=== PATIENT | male | born 1960 | race Caucasian/White ===

== ENCOUNTER 2017-03-04 15:01 | Emergency (ER) | payer BC ==
[~2017-03-04] VITALS: Ht 172.7 cm; Wt 107.0 kg
--- NOTE | 2017-03-04 15:05 | NUR ---
PATIENT BIB [facility] FROM STREET: SVT. ADENOSINE 6 GIVEN IN FIELD WITH HELP. PATIENT IS A/OX 4. STATING NO CHEST PAIN, "JUST DOESNT FEEL RIGHT." BREATHING EVEN AND UNLABORED. NO SOB. VITALS STABLE. IV IN LAC, 18 G. SAFETY AND COMFORT MEASURES IN PLACE. AWAITING MD ORDERS.
[2017-03-04 15:39] LABS: BASOPHILS % (AUTO) 0.3 % (0.0-2.0); EOSINOPHILS # (AUTO) 0.1 /CMM (0.0-0.7); EOSINOPHILS % (AUTO) 2.3 % (0.0-6.0); HEMATOCRIT 42 % (39-51); HEMOGLOBIN 14.1 g/dL (13.5-17.5); LYMPHOCYTES # (AUTO) 1.3 /CMM (0.8-4.8); LYMPHOCYTES % (AUTO) 26.6 % (20.0-44.0); MEAN CORPUSCULAR HEMOGLOBIN 30 PG (26.0-33.0); MEAN CORPUSCULAR HGB CONC 34 g/dl (31.0-36.0); MEAN CORPUSCULAR VOLUME 89 fL (80-96); MONOCYTES # (AUTO) 0.4 /CMM (0.1-1.30); MONOCYTES % (AUTO) 8.1 % (2.0-12.0); NEUTROPHILS # (AUTO) 3.3 /CMM (1.8-8.9); NEUTROPHILS % (AUTO) 62.7 % (43.0-81.0); PLATELET COUNT (AUTO) 303 /CMM (150-450); RDW COEFFICIENT OF VARIATION 13.1 (11.5-15.0); WHITE BLOOD COUNT (AUTO) 5.1 K/uL (4.3-11.0)
[2017-03-04 15:51] LABS: CALCIUM, SERUM 8.2 mg/dL (8.5-10.1); CARBON DIOXIDE 27 mmol/L (21-32); CHLORIDE 105 mmol/L (98-107); CREATININE 1.2 mg/dL (0.6-1.3); GLUCOSE 208 mg/dL (74-106); POTASSIUM 3.7 mmol/L (3.5-5.1); SODIUM SERUM 140 mmol/L (136-145); UREA NITROGEN, BLOOD 15 mg/dL (7-18)
[2017-03-04] MEDS ORDERED: METF500T4 PO (15:51)
[2017-03-04] MEDS ORDERED: TRAZ-144 PO (15:51)
[2017-03-04] MEDS ORDERED: ASPI81TA2 PO (15:51)
[2017-03-04] MEDS ORDERED: CHOL100044 PO (15:51)
[2017-03-04] MEDS ORDERED: LORA1TAB PO (15:51)
[2017-03-04] MEDS ORDERED: ATOR10TA PO (15:51)
[2017-03-04] MEDS ORDERED: VENL75CA56 PO (15:51)
[2017-03-04] MEDS ORDERED: AMPH30CA3 PO (15:51)
[2017-03-04] MEDS ORDERED: LISI2.5T2 PO (15:51)
[2017-03-04] MEDS ORDERED: LEVO112T2 PO (15:51)
[2017-03-04 15:54] LABS: INR 0.98 (0.87-1.13); PROTHROMBIN TIME 10.2 SECS (9.5-12.7)
[2017-03-04 15:57] LABS: ALANINE AMINOTRANSFERASE 36 U/L (12-78); ALBUMIN 3.5 g/dL (3.4-5.0); ALKALINE PHOSPHATASE 82 U/L (46-116); ASPARTATE AMINOTRANSFERASE 15 U/L (15-37); BILIRUBIN,DIRECT 0.2 mg/dL (0.0-0.2); TOTAL PROTEIN, SERUM 6.1 g/dL (6.4-8.2)
[2017-03-04 15:59] LABS: TROPONIN I < 0.017 ng/mL (0.00-0.056)
--- NOTE | 2017-03-04 16:58 | NUR ---
PATIENT IN SVT, RATE 188. DR. OBANDO INFORMED, 12 MG ADENOSINE ADMINISTERED UNDER MD SUPERVISION. WILL CONTINUE TO MONITOR.
--- NOTE | 2017-03-04 17:32 | NUR ---
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
--- NOTE | 2017-03-04 17:37 | NUR ---
DR KELLE CONTRERAS ON THE PHONE WITH ER PHYSICIAN DR OBANDO
--- NOTE | 2017-03-04 18:16 | NUR ---
No further cardiac arrhythmia noted at this time. Patient discharged to home in stable condition. Prescription handed to patient. Written and verbal after care instructions given. Patient verbalizes understanding of instruction.
[2017-03-04 18:17] VITALS: BP 118/86
== END 2017-03-04 18:18 | disposition home or self-care (01) ==
LOC: ER 15:03
DX: I47.1 Supraventricular tachycardia (principal); E11.9 Type 2 diabetes mellitus without complications; E78.5 Hyperlipidemia, unspecified; I10 Essential (primary) hypertension; Z79.82 Long term (current) use of aspirin
CPT/HCPCS: 36415; 71010; 80048; 80076; 83036; 84443; 84484; 85025; 85730; 93005 ×3; 96361; 96374; 99285; A4606; J0153; J7030; Z7610

== ENCOUNTER 2024-02-01 11:49 | Inpatient (IN) | payer BC, OTHER ==
[~2024-02-01] VITALS: Ht 172.7 cm; Wt 75.7 kg
[~2024-02-01 11:49] MED LIST: AMPH30CA3 PO; ASPI-1169 PO; ATOR10TA PO; CHOL100044 PO; LEVO112T2 PO; LISI2.5T2 PO; LORA1TAB PO; METF-440 PO; TRAZ-182 PO; VENL75CA56 PO
[2024-02-01] MEDS ORDERED: MECLIZINE HCL 25 MG TABLET ONE (12:12)
[2024-02-01] MEDS: MECLIZINE HCL 25 MG TABLET PO ONE (12:16)
[2024-02-01 12:20] LABS: BASOPHILS # (AUTO) 0.1 K/uL (0.0-0.2); BASOPHILS % (AUTO) 0.9 % (0.0-2.0); EOSINOPHILS # (AUTO) 0.1 K/uL (0.0-0.7); EOSINOPHILS % (AUTO) 1.8 % (0.0-6.0); HEMATOCRIT 42 % (39-51); HEMOGLOBIN 14.4 g/dL (13.5-17.5); LYMPHOCYTES # (AUTO) 2.2 K/uL (0.8-4.8); LYMPHOCYTES % (AUTO) 27.2 % (20.0-44.0); MEAN CORPUSCULAR HEMOGLOBIN 30 PG (26.0-33.0); MEAN CORPUSCULAR HGB CONC 35 g/dl (31.0-36.0); MEAN CORPUSCULAR VOLUME 86 fL (80-96); MONOCYTES # (AUTO) 0.7 K/uL (0.1-1.30); MONOCYTES % (AUTO) 8.9 % (2.0-12.0); NEUTROPHILS # (AUTO) 4.9 K/uL (1.8-8.9); NEUTROPHILS % (AUTO) 61.2 % (43.0-81.0); PLATELET COUNT (AUTO) 369 K/uL (150-450); RED BLOOD CELL COUNT(AUTO) 4.82 MIL/uL (4.5-6.0); RED CELL DISTRIBUTION WIDTH 14.7 % (11.5-15.0)
[2024-02-01 12:31] LABS: CALCIUM, SERUM 9.8 mg/dL (8.5-10.1); CARBON DIOXIDE 25 mmol/L (21-32); CHLORIDE 101 mmol/L (98-107); CREATININE 1.8 mg/dL (0.6-1.3); GLUCOSE 180 mg/dL (74-106); POTASSIUM 3.8 mmol/L (3.5-5.1); SODIUM SERUM 138 mmol/L (136-145); UREA NITROGEN, BLOOD 19 mg/dL (7-18)
[2024-02-01 12:43] LABS: ALANINE AMINOTRANSFERASE 17 U/L (12-78); ALBUMIN 3.6 g/dL (3.4-5.0); ALKALINE PHOSPHATASE 85 U/L (46-116); ASPARTATE AMINOTRANSFERASE 7 U/L (15-37); BILIRUBIN,DIRECT 0.1 mg/dL (0.0-0.2); BILIRUBIN,TOTAL 0.6 mg/dL (0.2-1.0); NT-PRO BNP 111 pg/mL (0-125); TOTAL PROTEIN, SERUM 7.3 g/dL (6.4-8.2)
[2024-02-01] MEDS: IV NS 0.9% 1,000 ML BAG IV ONE (13:00)
[2024-02-01] MEDS ORDERED: FOLI0.4T6 PO (13:45)
[2024-02-01] MEDS ORDERED: MAGN400T52 PO (13:45)
[2024-02-01] MEDS ORDERED: METF-442 PO (13:45)
[2024-02-01] MEDS ORDERED: ATOR20TA PO (13:45)
[2024-02-01] MEDS ORDERED: LEVO100T PO (13:45)
[2024-02-01] MEDS ORDERED: CHOL100062 PO (13:45)
[2024-02-01] MEDS ORDERED: ASPIRIN 325 MG TABLET ONE (13:46)
[2024-02-01] MEDS: ASPIRIN 325 MG TABLET PO ONE (13:48)
[2024-02-01] MEDS ORDERED: LORAZEPAM INJ 2 MG/ML VIAL ONE (14:05)
[2024-02-01] MEDS: LORAZEPAM INJ 2 MG/ML VIAL IV ONE (14:07)
[2024-02-01] MEDS ORDERED: ACETAMINOPHEN 325 MG TABLET PO PRN (16:30)
[2024-02-01] MEDS ORDERED: ONDANSETRON HCL/PF 4 MG/2 ML VIAL IVP PRN (16:30)
[2024-02-01] MEDS ORDERED: ZOLPIDEM TARTRATE 5 MG TABLET PO PRN (16:30)
[2024-02-01] MEDS ORDERED: MAGNESIUM HYDROXIDE 30 ML UDC PO PRN (16:30)
[2024-02-01] MEDS ORDERED: Z GUARD REMEDY 4 OZ OINT TP PRN (16:30)
[2024-02-01] MEDS ORDERED: hydrALAZINE HCL 25 MG TABLET PO PRN (16:30)
[2024-02-01] MEDS ORDERED: DEXTROSE 50%-WATER 50 ML DISP.SYRIN IV PRN (16:30)
[2024-02-01] MEDS ORDERED: MAG HYDROX/AL HYDROX/SIMETH 30 ML UDC PO PRN (16:30)
[2024-02-01] MEDS: BLOOD SUGAR DIAGNOSTIC 1 EACH STRIP VI SCH (18:00)
[2024-02-01 22:12] VITALS: O2SAT 97
[2024-02-01 22:45] VITALS: BP 124/92; TEMP 97.7; O2SAT 95
[2024-02-01] MEDS: SIMVASTATIN 20 MG TABLET PO SCH (23:44)
[2024-02-01] MEDS: TRAZODONE 50 MG TABLET PO SCH (23:44)
[2024-02-01] MEDS: IV 1/2NS 1000 ML 1,000 ML IV ONE (23:49)
[2024-02-02] VITALS: BP 114/91; TEMP 97.9; O2SAT 93
[2024-02-02] MEDS: ENOXAPARIN SODIUM 40 MG/0.4 ML DISP.SYRIN SQ SCH (00:45)
[2024-02-02 07:20] LABS: BASOPHILS # (AUTO) 0.1 K/uL (0.0-0.2); BASOPHILS % (AUTO) 1.1 % (0.0-2.0); EOSINOPHILS # (AUTO) 0.2 K/uL (0.0-0.7); HEMATOCRIT 39 % (39-51); HEMOGLOBIN 13.5 g/dL (13.5-17.5); LYMPHOCYTES # (AUTO) 2.9 K/uL (0.8-4.8); MEAN CORPUSCULAR HEMOGLOBIN 30 PG (26.0-33.0); MEAN CORPUSCULAR HGB CONC 34 g/dl (31.0-36.0); MEAN CORPUSCULAR VOLUME 88 fL (80-96); MONOCYTES # (AUTO) 0.7 K/uL (0.1-1.30); MONOCYTES % (AUTO) 8.6 % (2.0-12.0); NEUTROPHILS % (AUTO) 50.3 % (43.0-81.0); PLATELET COUNT (AUTO) 339 K/uL (150-450); RED BLOOD CELL COUNT(AUTO) 4.47 MIL/uL (4.5-6.0); RED CELL DISTRIBUTION WIDTH 14.7 % (11.5-15.0); WHITE BLOOD COUNT (AUTO) 7.9 K/uL (4.3-11.0)
[2024-02-02 08:00] VITALS: BP 108/85; TEMP 97.3; O2SAT 95
[2024-02-02 08:04] LABS: CALCIUM, SERUM 8.8 mg/dL (8.5-10.1); CREATININE 1.5 mg/dL (0.6-1.3); MAGNESIUM 1.8 mg/dL (1.8-2.4); PHOSPHORUS 3.7 mg/dL (2.5-4.9); POTASSIUM 3.6 mmol/L (3.5-5.1)
[2024-02-02] MEDS: ASPIRIN EC 325 MG TABLET.DR PO SCH (08:25)
[2024-02-02] MEDS: CHOLECALCIFEROL 1,000 UNIT TABLET (VIT D3) PO SCH (08:25)
[2024-02-02] MEDS: FOLIC ACID 1 MG TABLET PO SCH (08:25)
[2024-02-02] MEDS: PANTOPRAZOLE 40 MG TABLET.DR PO SCH (08:25)
[2024-02-02] MEDS: LEVOTHYROXINE SODIUM 100 MCG TABLET PO SCH (08:25)
[2024-02-02] MEDS: MAGNESIUM OXIDE 400 MG TABLET PO SCH (08:25)
[2024-02-02 08:44] LABS: THYROID STIMULATING HORMONE 4.23 uIU/mL (0.358-3.74)
[2024-02-02 08:56] LABS: CHOLESTEROL 180 mg/dL (<200); HDL CHOLESTEROL 33 mg/dL (40-60); LDL 118 mg/dL (0-99); TRIGLYCERIDES 171 mg/dL (30-150)
[2024-02-02] MEDS: INSULIN REGULAR, HUMAN 100 UNIT/ML 3 ML VIAL SQ PRN (11:35)
[2024-02-02 12:00] VITALS: BP 112/98; TEMP 97.7; O2SAT 95
[2024-02-02 13:28] LABS: THYROID STIMULATING HORMONE 5.02 uIU/mL (0.358-3.74)
[2024-02-02 16:00] VITALS: BP 102/90; TEMP 97.7; O2SAT 96
[2024-02-02] MEDS: CLOPIDOGREL BISULFATE 75 MG TABLET PO SCH (16:06)
[2024-02-02 20:00] VITALS: BP 110/92; TEMP 97.7; O2SAT 93
[2024-02-02] MEDS: *INSULIN REGULAR(HUMULIN R)HUM 100 UNIT/ML VIAL SQ PRN (21:58)
[2024-02-03] VITALS: BP 107/79; TEMP 98.2; O2SAT 96
[2024-02-03 06:27] LABS: BASOPHILS # (AUTO) 0.1 K/uL (0.0-0.2); EOSINOPHILS # (AUTO) 0.3 K/uL (0.0-0.7); EOSINOPHILS % (AUTO) 3.6 % (0.0-6.0); HEMATOCRIT 39 % (39-51); HEMOGLOBIN 13.6 g/dL (13.5-17.5); LYMPHOCYTES # (AUTO) 2.4 K/uL (0.8-4.8); LYMPHOCYTES % (AUTO) 31.1 % (20.0-44.0); MEAN CORPUSCULAR HEMOGLOBIN 30 PG (26.0-33.0); MEAN CORPUSCULAR HGB CONC 35 g/dl (31.0-36.0); MEAN CORPUSCULAR VOLUME 86 fL (80-96); MONOCYTES # (AUTO) 0.6 K/uL (0.1-1.30); MONOCYTES % (AUTO) 8.4 % (2.0-12.0); NEUTROPHILS # (AUTO) 4.2 K/uL (1.8-8.9); NEUTROPHILS % (AUTO) 55.9 % (43.0-81.0); PLATELET COUNT (AUTO) 325 K/uL (150-450); RED BLOOD CELL COUNT(AUTO) 4.56 MIL/uL (4.5-6.0); RED CELL DISTRIBUTION WIDTH 14.8 % (11.5-15.0); WHITE BLOOD COUNT (AUTO) 7.6 K/uL (4.3-11.0)
[2024-02-03 06:46] LABS: BILIRUBIN,TOTAL 0.9 mg/dL (0.2-1.0); CALCIUM, SERUM 9.3 mg/dL (8.5-10.1); CREATININE 1.5 mg/dL (0.6-1.3); MAGNESIUM 1.6 mg/dL (1.8-2.4); PHOSPHORUS 4.1 mg/dL (2.5-4.9); POTASSIUM 3.8 mmol/L (3.5-5.1); TOTAL PROTEIN, SERUM 6.4 g/dL (6.4-8.2)
[2024-02-03 08:23] VITALS: BP 105/72; TEMP 98.1; O2SAT 96
[2024-02-03] MEDS: MAGNESIUM OXIDE 400 MG TABLET PO ONE (11:17)
[2024-02-03 12:09] VITALS: BP 129/89; TEMP 98.2; O2SAT 95
[2024-02-03] MEDS ORDERED: IV NS 0.9% 250 ML IV ONE (14:21)
[2024-02-03] MEDS ORDERED: IOHEXOL-350 100 ML VIAL IV ONE (14:21)
[2024-02-03] MEDS ORDERED: ATOR20TA PO (15:13)
[2024-02-03] MEDS ORDERED: CLOP75TA15 PO (15:13)
[2024-02-03] MEDS ORDERED: ASPI-1100 PO ×2 (15:13→15:54)
[2024-02-03] MEDS ORDERED: HYDR-3976 GT (15:48)
[2024-02-03 16:01] VITALS: BP 118/83; TEMP 98.1; O2SAT 95
[2024-02-04 05:11] LABS: FOLIC ACID 13.9 ng/mL (>3.0)
[2024-02-04 09:09] LABS: PTH, INTACT 17 pg/mL (15-65)
[2024-02-06 10:11] LABS: *SPE A/G RATIO 1.1 (0.7-1.7); *SPE ALBUMIN 3.2 g/dL (2.9-4.4); *SPE ALPHA-1-GLOBULIN 0.2 g/dL (0.0-0.4); *SPE BETA GLOBULIN 0.8 g/dL (0.7-1.3); *SPE GLOBULIN, TOTAL 2.9 g/dL (2.2-3.9); *SPE M-SPIKE Not Observed g/dL (Not Observed); *SPE PROTEIN TOTAL 6.1 g/dL (6.0-8.5); *SPEGAMMA GLOBULIN 0.8 g/dL (0.4-1.8)
== END 2024-02-03 18:30 | disposition home or self-care (01) | DRG 65 ==
LOC: ER 11:55 → TELE 21:56
PROVIDERS: ADMIT Student in an Organized Health Care Education/Training Program; ATTEND Internal Medicine
DX: I63.331 Cerebral infarction due to thrombosis of right posterior cerebral artery (principal); N17.9 Acute kidney failure, unspecified; E11.9 Type 2 diabetes mellitus without complications; I10 Essential (primary) hypertension; E78.5 Hyperlipidemia, unspecified; Z86.79 Personal history of other diseases of the circulatory system; Z79.84 Long term (current) use of oral hypoglycemic drugs; Z79.890 Hormone replacement therapy; Z79.899 Other long term (current) drug therapy; E03.9 Hypothyroidism, unspecified; Z86.73 Personal history of transient ischemic attack (TIA), and cerebral infarction without residual deficits; M89.8X9 Other specified disorders of bone, unspecified site
CPT/HCPCS: 36415; 70450-TC; 70496-TC; 70498-TC; 70551-TC; 71045-TC; 76770-TC; 80048-TC; 80053-TC; 80061-TC; 80076-TC; 82550-TC; 82607-TC; 82962-TC; 83735-TC; 83880; 83921; 83970; 84100-TC; 84155; 84165; 84443-TC; 84484-TC; 85025-TC; 92526; 92611-TC; 93307-TC; 93880-TC; 97112-TC; 97116-TC; 97530-TC; A4223; G0378; J1650; J1815; J2060; J3490; J7050; J8597; Q9967